=== PATIENT | female | born 1995 | race Asian ===

== ENCOUNTER 2016-10-22 09:02 | Emergency (ER) | payer BC, OTHER ==
[~2016-10-22] VITALS: Ht 166.4 cm; Wt 70.0 kg
[~2016-10-22 09:02] MED LIST: CRY28 PO
[2016-10-22 09:08] VITALS: Ht 166.4 cm; Wt 70.0 kg
[2016-10-22] MEDS ORDERED: AMPH30CA3 PO (09:29)
[2016-10-22] MEDS ORDERED: OXYMETAZOLINE HCL 0.05% NA SPR 15 ML BTL ONE (10:00)
[2016-10-22] MEDS ORDERED: SILVER NITR/POTASSIUM NITRATE 10 APPLICATOR PACK ONE (10:16)
[2016-10-22 10:40] VITALS: BP 129/95; PULSE 88; O2SAT 99
--- NOTE | 2016-10-22 17:23 | EMERGENCY ROOM VISIT NOTE ---
ED Visit Note First contact with patient: 09:06 CHIEF COMPLAINT: Nosebleed HISTORY OF PRESENT ILLNESS: This 21-year-old female patient developed sudden onset of a nosebleed about an hour ago. The bleeding has not stopped with pressure. There was no trauma to the nose and no recent upper respiratory infection. The patient is not on Coumadin or other anticoagulants. She states she may have a history of von Willebrand's disease. No difficulty breathing, no cough, no headache or sore throat. She was Th[place] today when it started bleeding. REVIEW OF SYSTEMS: Throat: No sore throat, dysphagia, or hoarseness. Neurological: No headache, new changes in mental status, vertigo, focal weakness, numbness. Cardiac: No chest pain, diaphoresis, dyspnea on exertion, orthopnea, pedal edema, or palpitations. Respiratory: No cough, change in sputum, wheezes, hemoptysis, shortness of breath, or stridor. General: No fever or chills, fatigue, loss of appetite, or significant recent weight gain or loss. PMH: Questionable for von Willebrand's disease. ADHD. Previous surgeries: None Family history: Unremarkable Current medications: Oral contraceptives, Adderall Allergies: NKDA SOCIAL HISTORY: Patient lives at with a roommate. Single. [employer] student. No tobacco use. PHYSICAL EXAM: Vital Signs: Reviewed Nurse's notes. Afebrile. General: Well- developed, well-nourished, young female, in no acute distress. The patient is sitting upright holding the nose and is somewhat agitated. The patient is alert, oriented, coherent, and cooperative. There is no tachypnea or dyspnea. HEENT: Normocephalic atraumatic. Eyes PERRLA, EOMI. No conjunctiva or scleral injection. Oropharynx without erythema or exudate. Uvula midline, oral mucosa moist. No lesions present. Exam of the nostrils reveals bleeding from the right nares. She has some additional back up on the left though I do not think it is bleeding from there. The lungs were clear to auscultation, and the heart sounds regular and of normal quality. EMERGENCY DEPARTMENT COURSE: Patient initially was given nasal clips. These were left in place for around 10 minutes. Bleeding had mostly stopped. Use your examination was possible. Bleeding is coming from the right nares at Kiesselbach's plexus. Patient was given Afrin nasal spray. Bleeding continued through 2 punctate areas. She elected to proceed with silver nitrate cautery to stop the bleeding. Risks and benefits were discussed with her. DIAGNOSIS: Epistaxis DISCHARGE INSTRUCTIONS & TREATMENT: Patient was educated regarding today's findings. Conservative care measures were discussed. Informed oral consent was obtained for cautery of the nares. Silver nitrate sticks were used to cauterize Kiesselbach's plexus in both the right and left nares. Patient tolerated this very well. Bacitracin ointment was applied inside both nares. She may return to [facility] today and participate. Note was provided. Firm pressure on the nose for 15 minutes if bleeding recurs. If you are unable to get it stopped after that, return to the emergency department for further exam and treatment. Blow the nose very gently if at all over the next 3 days. Don't put any objects into the nose. She was reassured that I do not suspect a posterior bleed. Current/Historical Medications Scheduled Amphetamine-Dextroamphetamine 30MG (Adderall Xr 30MG), 30 MG PO WK Ethinyl Estradiol/Norgestrel (Cryselle-28), 1 TAB PO DAILY Allergies Coded Allergies: No Known Allergies (Verified , 10/22/16) Vital Signs Date Time Temp Pulse Resp B/P Pulse Ox O2 Delivery O2 Flow Rate FiO2 10/22/16 10:40 88 129/95 99 10/22/16 09:08 106 20 132/90 96 Room Air Medications Administered Medications (Trade) Dose Ordered Sig/Greg Route Start Time Stop Time Status Last Admin Dose Admin Oxymetazoline HCl (Afrin 0.05% Nasal [place]) 1 sprays NOW ONCE NA 10/22/16 10:00 10/22/16 10:01 DC 10/22/16 09:53 1 SPRAYS Silver Nitrate/ Potassium Nitrate (Silver Nitrate Applicators) 2 pkt STK-MED ONCE .ROUTE 10/22/16 10:16 10/22/16 10:18 DC 10/22/16 10:19 2 PKT Departure Information Referrals Joni Sharpe M.D. (PCP) Patient Instructions My [facility] [place] GitHub
== END 2016-10-22 10:41 | disposition home or self-care (01) ==
LOC: EDBD 09:02 → C.EDB 09:04
DX: R04.0 Epistaxis (principal); F90.9 Attention-deficit hyperactivity disorder, unspecified type; D68.0 Von Willebrand disease; Z79.899 Other long term (current) drug therapy

== ENCOUNTER → 2016-10-26 | Outpatient (CLI) | payer OTHER ==
[~2016-10-26] MED LIST changes: +AMPH30CA3 PO
[2016-10-28 02:38] LABS: CHLAMYDIA TRACH RNA*** NOT DETECTED (NOT DETECTED); GC (NEIS GONORRHOEAE)RNA** NOT DETECTED (NOT DETECTED)
== END | disposition home or self-care (01) ==
LOC: C.LABSPEC 11:13
PROVIDERS: ATTEND Obstetrics & Gynecology
DX: Z11.3 Encounter for screening for infections with a predominantly sexual mode of transmission (principal)

== ENCOUNTER → 2016-10-26 | Outpatient (CLI) | payer OTHER | END | disposition home or self-care (01) | LOC: C.PAPS 11:50 | PROVIDERS: ATTEND Obstetrics & Gynecology | DX: Z01.419 Encounter for gynecological examination (general) (routine) without abnormal findings (principal) ==

== ENCOUNTER → 2018-01-11 | Outpatient (CLI) | payer OTHER | END | disposition home or self-care (01) | LOC: C.LABSPEC 10:55 | PROVIDERS: ATTEND Obstetrics & Gynecology | DX: Z11.3 Encounter for screening for infections with a predominantly sexual mode of transmission (principal) ==

== ENCOUNTER → 2018-01-11 | Outpatient (CLI) | payer OTHER | END | disposition home or self-care (01) | LOC: C.PAPS 12:14 | PROVIDERS: ATTEND Obstetrics & Gynecology | DX: Z12.4 Encounter for screening for malignant neoplasm of cervix (principal) ==

== ENCOUNTER 2023-12-13 07:27 | Inpatient (IN) ==
[2023-12-13] MEDS ORDERED: LIDOCAINE 1% LOCAL 20 ML VIAL INFIL PRN (07:57)
[2023-12-13 08:37] LABS: Hematocrit (blood only) 36.4 % (37.0-47.0); Hemoglobin 11.6 g/dl (12.0-16.0); Mean Corpuscular Hemoglobin 23.9 pg (25.0-34.0); Mean Corpuscular Hgb Conc 31.9 g/dL (32.0-36.0); Mean Corpuscular Volume 74.9 fL (80.0-100.0); Platelet Count 239 K/uL (130-400); RDW Coefficient of Variation 16.6 % (11.5-14.5); RDW Standard Deviation 44.7 fL (36.4-46.3); Red Blood Count 4.86 M/uL (4.20-5.40); White Blood Count 6.67 K/ul (4.8-10.8)
--- NOTE | 2023-12-13 09:03 | History & Physical Report ---
Date of Service December 13, 2023 Assessment & Plan (1) Encounter for induction of labor: Plan 28 y/o female currently at 40w 2d with an GABRIEL 12/11/2023 as determined by LMP, who is here for IOL. Conley bulb Pitocin AROM as indicated Epidural prn Monitor heart tracing, category 1 Admission and Anticipated Discharge Date Admission Date: December 13, 2023 History of Present Illness Primary Care Provider: Roxi Wynn MD 28 y/o female currently at 40w 2d with an GABRIEL 12/11/2023 as determined by LMP, who is here for IOL. PAP07/2022 - neg/+HPV not 16/18 *colpo 10/2022 neg bx, +ecc atypical cells *repeat pap JULY 2023 - cells WNL, HPV+ *Colpo ppx VonWillebrand's disease *see nob note *await retest labs -05/02 testing negative for vwd deficiency Patient silent carrier alpha thalassemia fob is negative Had regular appointments with OB denies Contractions + movement denies Fluid loss denies Vaginal bleeding External FHT and external uterine monitors used: Category 1 tracing OB Labs: Blood Type O Positive 05/02/23 Antibody Screen NEGATIVE 05/02/23 Hemoglobin 11.3 g/dl (12.0-16.0) L 09/24/23 Hematocrit 36.5 % (37.0-47.0) L 09/24/23 Mean Corpuscular Volume 76.5 fL (80.0-100.0) L 05/02/23 Platelet Count 246 K/uL (130-400) 05/02/23 Rubella IgG Antibody Immune (Immune) 05/02/23 Rapid Plasma Reagin Nonreactive (Nonreactive) 05/02/23 Hepatitis B Surface Antigen. NON-REACTIVE (NON-REACTIVE) 05/02/23 Hepatitis C Antibody (EIA) NON-REACTIVE (NON-REACTIVE) 05/02/23 HIV (1&2) Ag and Ab Confirmation NON-REACTIVE (NON-REACTIVE) 05/02/23 Glucose 1 Hour 50 gm Load 113 mg/dl (70-130) 09/24/23 Maternal Serum Alpha Fetoprotein 20.9 ng/mL 06/22/23 OB Optional Labs: Chlamydia trachomatis RNA Not Detected (NotDetected) 05/02/23 Neisseria gonorrhoeae RNA Not Detected (NotDetected) 05/02/23 Thyroid Stimulating Hormone (TSH) 0.887 uIu/ml (0.300-4.500) 02/12/23 Alpha Fetoprotein Triple Screen SEE NOTE 06/22/23 Labs Reviewed: afp neg--akh gbs neg--akh Allergies Allergy/AdvReac Type Severity Reaction Status Date / Time No Known Allergies Allergy Unknown Verified 12/11/23 11:29 Home Medications Medication Instructions Recorded Confirmed Type albuterol sulfate 90 mcg/actuation 1 - 2 puff inhalation Q6H PRN 09/06/21 12/11/23 Rx aerosol inhaler shortness of breath #8.5 grams vit 168-iron 27 mg-folic cap PO DAILY 04/25/23 12/11/23 History acid 800 mcg-omega3 235 mg capsule (One-A-Day -1) breast pump #1 ea 11/20/23 12/11/23 Rx breast pump #1 ea 11/20/23 12/11/23 Rx Patient History Medical History (Updated 12/13/23 @ 09:07 by Sebastian Rees DO) COVID-19 (01/2022) Allergic rhinitis Anemia Asthma, exercise induced Neurofibroma H/O menorrhagia H/O dysmenorrhea Surgical History No history of previous surgery No pertinent past surgical history Family History Grandfather (Paternal) Asthma Hyperlipidemia Hypertension Grandfather (Maternal) Colorectal cancer Denies family history of Pancreatic cancer Ovarian cancer Prostate cancer Myocardial infarction Breast cancer Uterine cancer Social History (Updated 12/13/23 @ 08:21 by Andreina Mark, CARLOS) Smoking Status: Never smoker Second Hand Exposure: No; Do You Dip or Chew Tobacco: No; Hx Alcohol Use: No Hx Substance Use: No Preferred Language: Nigerian Communication Ability: Effective Visual Impairment: No Limitations Hearing Ability: Normal Application Development Intern Required: No Beliefs That Will Affect Care: None marital status: marital status details: Caty Kebede (28) [phone] Current Living Situation: Spouse Current Living Situation Comment: lives with spouse, 1 dog. 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 Other Information That Helps Us Care for You: No Feels Safe at Home: Yes Childhood Exposure to Second-Hand Smoke: Yes (father) Diet Comment: reg diet caffeine: Yes (coffee/tea) during the past year weight has: remained stable Dental Care, Regularly: Yes Physical Activity Frequency: 3-4 Times per Week Seatbelt Use: always Sunscreen Use: Yes Assistive Devices: Contacts OB History [employer] History Hx of abnml PAP: Pos (HPV + 2021, LGSIL 2019, ASCUS 2020, Colpo 2022) Review of Systems denies chest pain or SOB denies fever/chills denies CAZARES/changes in vision denies dysuria denies LE pain Physical Exam Physical Exam: General: Alert and oriented. No acute distress Cardiac: Regular rate and rhythm, no murmurs appreciated Respiratory: Lungs clear to auscultation bilaterally, No increased work of breathing Abdominal: Soft, non-tender, non-distended. Bowel sounds present. Gravid uterus. Extremities: No lower extremity edema, calves non-tender bilaterally FHT: Category 1, baseline rate 140, moderate variability, infrequent contractions Genitourinary: OB Exam Abdomen: + vertex and + estimated weight (7-8 pounds); no regular contractions Manual OB Exam: + cervical dilation (closed), + cervical effacement 50% and + station (-3) OB Exam Monitor Tracing: + external FHT monitor used, + external uterine monitor used, + category I and + normal FHT variability cervical balloon placed under direct visualization- 40 cc of sterile water instilled into the balloon. the catheter was placed on gentle traction and secured to her left thigh. patient tolerated procedure well. Results & Data Vital Signs (Past 12 Hours) Vital Signs Temp Pulse Resp BP 12/13/23 07:52 36.7 C 69 20 115/71 12/13/23 07:47 69 115/71 Supervising Physician Co-Signing Physician Notes Resident Physician Supervision Note: I interviewed and examined the patient. Discussed with Dr. Rees and agree with findings and plan as documented in the note. Any exceptions or clarifications are listed here: [None] Documented By: Shabana Rios MD, FACOG Resident Activity Tracking Resident Involvement: Resident Care Provided Care Provided: OB Delivery
[2023-12-13] MEDS: OXYTOCIN 30 UNITS/NSS 30 UNITS/500 ML BAG IV PRN (09:33)
[2023-12-13] MEDS: LACTATED RINGER'S 1,000 ML IV PRN (09:33)
[2023-12-13] MEDS ORDERED: ALBUTEROL HFA 8 GM INHALER INH PRN (09:34)
[2023-12-13] MEDS ORDERED: BUTORPHANOL TARTRATE 2 MG/ML VIAL IV PRN (09:35)
[2023-12-13] MEDS ORDERED: LIDOCAINE 2% MPF LOCAL 5 ML VIAL EPI PRN (15:57)
[2023-12-13] MEDS ORDERED: ROPIVACAINE 0.5% PF 5 MG/ML 20 ML VIAL EPI PRN (15:57)
[2023-12-13] MEDS ORDERED: fentaNYL citrate PF 100 MCG/2 ML VIAL EPI PRN (15:57)
[2023-12-13] MEDS ORDERED: NALBUPHINE HCL 5 MG in SYRINGE 0 ML IV PRN (15:57)
[2023-12-13] MEDS ORDERED: ePHEDrine sulfate 50 MG/ML AMP IV PRN (15:57)
[2023-12-13] MEDS ORDERED: NALOXONE HCL 1 MG in SODIUM CHLORIDE 0.9% 1,000 ML IV PRN (15:57)
[2023-12-13] MEDS ORDERED: NALOXONE HCL 0.4 MG/1 ML VIAL/CARP IV PRN (15:57)
[2023-12-13] MEDS ORDERED: diphenhydrAMINE 50 MG/ML VIAL IV PRN (15:57)
[2023-12-13] MEDS ORDERED: BUPIVACAINE 0.25% PF 30 ML VIAL EPI PRN (15:57)
[2023-12-13] MEDS ORDERED: SODIUM CHLORIDE 0.9% PF INJ 10 ML VIAL EPI PRN (15:57)
--- NOTE | 2023-12-13 15:57 | Anesthesiology Consultation ---
Date of Service December 13, 2023 Assessment & Plan ASA ASA2 Proposed Anesthesia Anesthesia Type: Labor Epidural Risk / Benefits Reviewed With: PT / POA / Parent / Guardian, Accepts Plan and Informed Consent Obtained History Height/Weight Height: 5 ft 5 in Weight: 92.079 kg Allergies Allergy/AdvReac Type Severity Reaction Status Date / Time No Known Allergies Allergy Unknown Verified 12/11/23 11:29 Medications Home Medications Medication Instructions Recorded Confirmed Last Taken albuterol sulfate 90 mcg/actuation 1 - 2 puff inhalation Q6H PRN 09/06/21 12/11/23 Unknown aerosol inhaler shortness of breath #8.5 grams vit 168-iron 27 mg-folic cap PO DAILY 04/25/23 12/11/23 12/12/23 acid 800 mcg-omega3 235 mg capsule (One-A-Day -1) breast pump #1 ea 11/20/23 12/11/23 Unknown breast pump #1 ea 11/20/23 12/11/23 Unknown Active Medications Generic Name Dose Route Start Last Admin Trade Name Freq PRN Reason Stop Dose Admin Oxytocin 30 units in 500 mls @ 16 mls/hr 12/13/23 07:57 12/13/23 16:39 Pitocin 30 Units/Nss IV 12/15/23 07:56 0.96 units/hr .Q24H PRN 16 mls/hr Labor Induction/Augmentation Titration Protocol 0.96 UNITS/HR Lactated Ringer's 1,000 mls @ 125 mls/hr 12/13/23 07:57 12/13/23 16:40 Lr IV 12/15/23 07:56 125 mls/hr .Q8H PRN Titration L&D Protocol Protocol Past Medical History Medical History COVID-19 (01/2022) Allergic rhinitis Anemia Asthma, exercise induced Neurofibroma H/O menorrhagia H/O dysmenorrhea Exercise / Class Metabolic Activity II 4-5 Yardwork/Stairs/Walk up hill Past Family History Family History Grandfather (Paternal) Asthma Hyperlipidemia Hypertension Grandfather (Maternal) Colorectal cancer Denies family history of Pancreatic cancer Ovarian cancer Prostate cancer Myocardial infarction Breast cancer Uterine cancer Past Surgical History Surgical History No history of previous surgery No pertinent past surgical history Past Anesthesia History No Hx of Anesthesia Complications and No Family Hx of Anesthesia Complications History of PONV No Hx of PONV and No Hx of Motion Sickness Social History Smoking Status: Never smoker Do You Dip or Chew Tobacco: No Hx Alcohol Use: No Alcohol type: wine Hx Substance Use: No Review of Systems denies fever/cough/ colds/ chest pain/ SOB/ SILVANO denies SILVANO Physical Exam Vital Signs Last Vital Signs Temp 36.6 C 12/13/23 14:49 Pulse 68 12/13/23 17:00 Resp 20 12/13/23 14:49 BP 122/68 12/13/23 16:52 Pulse Ox 96 12/13/23 17:00 ENMT Mouth: no TMJ abnormality and no dentition abnormality Thyromental Distance: > or= 3.5 Finger Breadths Mallampati Class: II Neck neck extension not limited Respiratory normal respiratory effort; no respiratory distress Auscultation: lungs clear to auscultation bilaterally Cardiovascular Rate/Rhythm: regular rate and regular rhythm Neurologic moves all extremities Psychiatric Orientation: alert and oriented x 3 Testing Laboratory Results 12/13/23 08:09
[2023-12-13] MEDS: LIDOCAINE 2%/EPINEPHRINE 1:200,000 20 ML PF ONE (16:23)
[2023-12-13] MEDS: BUPIVACAINE 0.25% PF 30 ML VIAL ONE (16:23)
[2023-12-13] MEDS: fentaNYL citrate PF 100 MCG/2 ML VIAL ONE (16:23)
[2023-12-13] MEDS: fentANYL 2 MCG/ML BUPIVacaine 0.125%-NSS 100ML BAG ONE (16:24)
[2023-12-13] MEDS: SODIUM CHLORIDE 0.9% PF INJ 10 ML VIAL ONE (16:43)
[2023-12-13] MEDS: ePHEDrine sulfate 50 MG/ML AMP ONE (16:43)
[2023-12-13] MEDS: fentaNYL citrate PF 100 MCG/2 ML VIAL EPI STA (17:34)
[2023-12-13] MEDS: BUPIVACAINE 0.25% PF 30 ML VIAL EPI STA (17:34)
[2023-12-13] MEDS: SODIUM CHLORIDE 0.9% PF INJ 10 ML VIAL EPI STA (17:35)
[2023-12-13] MEDS: LIDOCAINE 2%/EPINEPHRINE 1:200,000 20 ML PF EPI STA (17:35)
[2023-12-13] MEDS: fentANYL 2 MCG/ML BUPIVacaine 0.125%-NSS 100ML BAG EPI PRN (22:33)
[2023-12-14] MEDS: OXYTOCIN 30 UNITS/NSS 30 UNITS/500 ML BAG IV PRN (06:15)
[2023-12-14] MEDS ORDERED: bisacodyL 10 MG SUPP PR PRN (06:28)
[2023-12-14] MEDS ORDERED: OXYTOCIN 30 UNITS/NSS 30 UNITS/500 ML BAG IV PRN (06:28)
[2023-12-14] MEDS ORDERED: oxyCODONE/ACETAMINOPHEN 5mg/325mg TAB PO PRN (06:28)
--- NOTE | 2023-12-14 06:46 | Delivery Summary ---
Vaginal Delivery Summary Date of Service December 14, 2023 Vaginal Delivery Summary and 2nd Degree LAC Patient is a 28-year-old G1, P0 female EDC 12/11/2023 who presented for postdates induction. A cervical balloon was placed and Pitocin induction initiated at the same time. After the balloon was expelled, membranes were ruptured for clear fluid. She received epidural analgesia which was effective. She progressed to full dilation and pushed effectively over intact perineum for delivery of a viable male . After the head delivered there was a shoulder cord noted which was reduced as the posterior shoulder delivered. Rest the infant delivered easily and was placed on the mother's abdomen for further attention and drying. He was vigorous crying and moving all 4 limbs. After 1 minute, the cord was clamped and cut. After cord blood was obtained, the placenta was expr essed intact with a three-vessel cord. A second-degree perineal laceration was repaired with 3-0 chromic in the usual fashion. bleeding was controlled with dilute Pitocin and fundal massage. QBL was 498 cc. Mother and infant were doing well after delivery. [facility] [place]ag[place] Delivery Charge Delivery Type Details: and 2nd Degree LAC
[2023-12-14] MEDS: IBUPROFEN 600 MG TAB PO PRN (07:43)
--- NOTE | 2023-12-14 08:49 | Anesthesia Procedure Note ---
Date of Service December 14, 2023 Anesthesia Post Epidural Note Vital Signs Vital Signs: Temp Pulse Resp BP Pulse Ox 37.6 C H 75 18 111/59 L 97 12/14/23 05:03 12/14/23 08:33 12/14/23 06:48 12/14/23 08:33 12/14/23 06:16 Notes Mental Status: alert / awake / arousable Nausea / Vomiting: adequately controlled Pain: adequately controlled Airway Patency, RR, SpO2: stable & adequate BP & HR: stable & adequate Hydration State: stable & adequate Neuraxial Anesthesia: was administered and sensory block is resolving Anesthetic Complications: no major complications apparent and Pt Satisfied with anesthetic care Epidural: Removed without complications and With tip intact
[2023-12-14] MEDS: DOCUSATE SODIUM 100 MG CAP PO SCH (09:31)
[2023-12-14] MEDS: PRENATAL VITAMIN 1 TAB PO SCH (09:31)
[2023-12-14] MEDS: BENZOCAINE 20% SPRY 85 APPLN/85 GM CAN EXT PRN (09:31)
[2023-12-14] MEDS: DIPHTHER/TETAN/PERTUS Vaccine (Tdap, Adol/Adult) 0.5mL IM ONE (09:54)
[2023-12-15 06:41] LABS: Hematocrit (blood only) 27.4 % (37.0-47.0); Hemoglobin 8.8 g/dl (12.0-16.0); Mean Corpuscular Hemoglobin 24.1 pg (25.0-34.0); Mean Corpuscular Hgb Conc 32.1 g/dL (32.0-36.0); Mean Corpuscular Volume 75.1 fL (80.0-100.0); Mean Platelet Volume 11.4 fL (9.4-12.4); Platelet Count 158 K/uL (130-400); RDW Coefficient of Variation 16.9 % (11.5-14.5); RDW Standard Deviation 45.5 fL (36.4-46.3); Red Blood Count 3.65 M/uL (4.20-5.40)
--- NOTE | 2023-12-15 07:07 | Obstetrical Progress Note ---
Date of Service December 15, 2023 Assessment & Plan (1) care and examination: Plan doing well, routine care. she will let us know if any concerns to void. rhpos/ri/breast feeding. Day #:: 1 Subjective Ambulation: ambulating normally Voiding: no voiding problems Diet Tolerance:: regular diet Lochia:: Small Feeding Type:: breast feeding doing well. voiding well now. Physical Exam Constitutional WD/WN, vitals as above Respiratory normal respiratory effort, lungs clear to auscultation Cardiovascular Rate/Rhythm: regular rate and regular rhythm Gastrointestinal (Abdomen) Inspection/Auscultation: abdomen normal to inspection Percussion/Palpation: abdomen soft Fundus firm 2cm down Musculoskeletal nt calves tr edema Neurologic grossly normal Psychiatric A+Ox3, euthymic affect Results & Data Vital Signs (Past 12 Hours) Vital Signs Temp Pulse Resp BP O2 Del Method 12/15/23 03:52 97.5 F L 69 16 100/64 Room Air 12/14/23 23:57 97.5 F L 76 14 104/64 Room Air 12/14/23 20:43 97.9 F 86 16 108/70 Room Air
[2023-12-15] MEDS: bisacodyL 5 MG TABEC PO SCH (21:09)
[2023-12-15] MEDS: HYDROCORTISONE ACETATE 25 MG SUPP PR PRN (21:20)
[2023-12-16 06:57] LABS: Hematocrit (blood only) 28.1 % (37.0-47.0); Hemoglobin 8.7 g/dl (12.0-16.0)
[2023-12-16] MEDS: ACETAMINOPHEN 325 MG TAB PO PRN (07:12)
--- NOTE | 2023-12-16 09:22 | Obstetrical Progress Note ---
Date of Service December 16, 2023 Assessment & Plan (1) care and examination: Plan Doing well, plan d/c, instructions reviewed. Day #:: 2 Subjective Ambulation: ambulating normally Voiding: no voiding problems Passing Gas:: Yes Diet Tolerance:: clear liquids Lochia:: Small Feeding Type:: breast feeding c//o hemorrhoid Physical Exam Constitutional WD/WN, vitals as above Respiratory normal respiratory effort, lungs clear to auscultation Cardiovascular RRR, no murmur, no edema Extremities: + edema (tr); no calf tenderness Gastrointestinal (Abdomen) soft, nt, nd, no masses ff/nt 2 below u Psychiatric A+Ox3, euthymic affect Results & Data Vital Signs (Past 12 Hours) Vital Signs Temp Pulse Resp BP Pulse Ox O2 Del Method 12/16/23 07:40 37.1 C 54 L 16 108/71 Room Air 12/15/23 23:45 36.7 C 63 18 87/53 L 98 Room Air
== END 2023-12-16 13:30 | disposition home or self-care (01) | DRG 807 ==
LOC: 4S1 07:27 → 4E2 12-14 09:49